=== PATIENT | female | born 1990 | race Caucasian/White ===

== ENCOUNTER 2020-05-12 10:45 | Observation (INO) | payer MEDICAID ==
[~2020-05-12] VITALS: Ht 162.6 cm; Wt 70.8 kg
[2020-05-12] MEDS ORDERED: PREN1TAB78 MT (12:56)
== END 2020-05-12 13:25 | disposition home or self-care (01) ==
LOC: 8 EST LDRP 10:45
PROVIDERS: ADMIT Obstetrics & Gynecology; ATTEND Obstetrics & Gynecology
DX: O62.9 Abnormality of forces of labor, unspecified (principal); Z3A.39 39 weeks gestation of pregnancy
CPT/HCPCS: 99281; G0378